=== PATIENT | female | born 1960 | race Caucasian/White ===

== ENCOUNTER 2025-01-22 13:01 | Outpatient (AMB) | payer BC, SELFPAY ==
--- NOTE | 2025-01-22 13:05 | MHC.PC.OV ---
Vital Signs 01/22/25 13:15 Height 5 ft 4.02 in Weight 149 lb 6 oz BMI 25.6 BP 110/74 Blood Pressure Location Rt brachial Position Sitting Respiration 12 Pulse 87 Pulse Source Pulse Oximeter Temp 98.1 F Temp Source Oral Pulse Oximetry (%) 97 Oxygen Delivery Method Room Air Intake Visit Reasons: New Patient requesting PE Intake Note: New patient visit Traffic Court Magistrate Required: No Allergies Penicillins Allergy (Unknown, Verified 01/22/25 13:10) Rash Medication List - Last Reconciled 01/22/25 by Deanna Lynch PA-C bupropion HCl XL 300 mg PO DAILY cholecalciferol (vitamin D3) 25 mcg PO DAILY cyanocobalamin (vitamin B-12) 1,000 mcg PO DAILY pantoprazole 20 mg PO BID potassium chloride ER 10 mEq PO DAILY triamterene-hydrochlorothiazid 75-50 mg 1 tab PO DAILY Tobacco use date assessed: 01/22/25 Fall risk assessment: 1 Fall in past year Last assessed Fall Risk: 01/22/25 Dental Screening Dental Screen Date: 01/22/25 Did you have a dental visit in the last 12 months?: Yes Did you have a dental problem in the last 6 months where you did not have access to dental care?: No Was dental information given to patient?: Patient has dentist HPI New Patient requesting PE HPI Details Pt is a 64 y/o female with a hx of anxiety, depression, menieres disease presenting today to [facility]. She is transferring from [place]. CV: She is on triamterene-hctz 75-50 mg daily but states that this is purely for Meniere's disease. BP is WNL today. HEENT: She does get some hoarseness of her voice on and off with a feeling of having to clear it. She denies pnd, difficulty swallowing. She has an ENT appointment coming up for the Meniere's disease but would like to be seen for the intermittent hoarseness of her voice and feeling like she has to constantly clear her throat. She says it just feels like there is something in it. There is no difficulty swallowing or swelling in her neck. No weight loss. She is a [employer]. She states that she was seen by an online group who recommended she tries a PPI. The PPI has been somewhat helpful. GI: She has had a clearing in her throat and slight cough for about 7 years. Recently tried a PPI for the last couple of months and does feel like this is improving it but it has not fully resolved. She does have a family history of esophageal cancer. No difficulty swallowing or weight loss. MSK: bilateral wrist pain x 1 year. Had previous cts in 2006. She says anytime she puts pressure on her hands and wrists she feels pain and weakness in the wrist. It feels different than carpal tunnel. No numbness, tingling or weakness. Has been going on for quite some time without any trauma. She used to do yoga all the time and now feels like she cannot. Psych: well controlled with wellbutrin 300 mg. States that she has been on this for years and in the past tried to come off of it but was unable to. No SI/HI. Colonoscopy: Overdue, did have a Cologuard a few years ago. 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 [facility] Surgical History (Updated 01/22/25 @ 13:48 by Deanna Lynch PA-C) History of carpal tunnel release of both wrists Family History (Updated 01/22/25 @ 13:14 by Padmini Curry CMA) Father Depression Alcohol abuse Mother Alcohol abuse Other FH: mental illness Substance use Social History Housing: House Patient Tobacco Use Status: Never used Tobacco (only smoked 1-2 times total in lifetime) e-Cigarette/Vaping Use: Never Used Second Hand Smoke Exposure: No service: No 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al status: retired Cognitive needs: No Hearing needs: Yes (hearing problem in right ear) Vision needs: Yes (glasses) Questionnaire PHQ-9 Over the last 2 weeks, how often have you been bothered by any of the following problems? 1. Little interest or pleasure in doing things: not at all 2. Feeling down, depressed, or hopeless: not at all 3. Trouble falling or staying asleep, or sleeping too much: not at all 4. Feeling tired or having little energy: not at all 5. Poor appetite or overeating: not at all 6. Feeling bad about yourself - or that you are a failure or have let yourself or your family down: not at all 7. Trouble concentrating on things, such as reading the newspaper or watching television: not at all 8. Moving or speaking so slowly that other people could have noticed. Or the opposite - being so fidgety or restless that you have been moving around a lot more than usual: not at all 9. Thoughts that you would be better off or of hurting yourself in some way: not at all Total score: 0 Depression Screening Interpretation: Negative Depression Screening Done: Yes 26782 - PHQ-9 Billing: Yes Source: Developed by Drs. Sohan Oliva, Erika Alas, Dino Hutchison and colleagues, with an educational faviola from [employer]. Thrive Questionnaire I am a: Patient What is your living situation today?: I have a steady place to live Within the past 12 months, did the food you bought not last and you didn't have the money to get more?: Never true Within the past 12 months, did you worry whether your food would run out before you got money to buy more?: Never true Do you have trouble paying for medicines?: No Do you have trouble getting transportation to medical appointments?: No Do you have trouble paying your heating and electricity bill?: No Do you have trouble taking care of your child, family member or friend?: No Do you have trouble with day-to-day activities such as bathing, preparing meals, shopping, managing finances, etc.?: No Are you currently unemployed and looking for a job?: No Are you interested in more education?: No Please select the resources that you would like help with: None Currently or been in a relationship where the following occur: No concerns reported THRIVE Score: 0 AUDIT C Alcohol Use Questionnaire (AUDIT-C) 1. How often do you have a drink containing alcohol?: 2-3 times a week 2. How many drinks containing alcohol do you have on a typical day when you are drinking?: 1 or 2 3. How often do you have six or more drinks on one occasion?: Never Total Score: 3 JOSEPH-7 AMB Questionnaire JOSEPH-7 Feeling nervous, anxious, or on edge: 0 = Not at all Not being able to stop or control worryin = Not at all Worrying too much about different things: 0 = Not at all Trouble relaxin = Not at all Being so restless that it is hard to sit still: 0 = Not at all Becoming easily annoyed or irritable: 0 = Not at all Feeling afraid as if something awful might happen: 0 = Not at all Total JOSEPH-7 score (0-4 normal; 5-9 mild; 10-14 moderate; 15-21 severe): 0 Source: Developed by Drs. Sohan Oliva, Erika Alas, Dino Hutchison and colleagues, with an educational faviola from [employer]. JOSEPH-7 Assessment Billing JOSEPH-7 Assessment Tool: JOSEPH-7 Assessment 97977 Physical exam (Primary Care) Vital Signs: Last Vital Signs Temp 98.1 F 01/22/25 13:15 Pulse 87 01/22/25 13:15 Resp 12 01/22/25 13:15 BP 110/74 01/22/25 13:15 Pulse Ox 97 01/22/25 13:15 Oxygen Delivery Method Room Air 01/22/25 13:15 BMI result Body Mass Index 25.6 Tobacco/Smoking Status: Tobacco use Status Tobacco use date assessed 01/22/25 01/22/25 13:18 Patient Tobacco Use Status Never used Tobacco (only 01/22/25 13:18 smoked 1-2 times total in lifetime) e-Cigarette/Vaping Use Never Used 01/22/25 13:18 PHQ-9: PHQ-9 Score PHQ-9: Total score 0 01/22/25 13:35 Depression Screening Interpretation: Negative Currently or been in a relationship where the following occur: No concerns reported Const Orientation/consciousness: patient oriented x3 HENMT Ears: hearing grossly normal bilaterally Neck Thyroid: Thyroid normal Lymphatic: no lymphadenopathy noted Resp Auscultation: clear to auscultation bilaterally Cardio Rate: regular rate Rhythm: regular rhythm Heart sounds: S1 normal heart sound present and S2 normal heart sound present GI Inspection: Yes normal to inspection Palpation (GI): Soft to palpation and Other GI palpation findings present (nontender, no cva tenderness) Auscultation: normoactive bowel sounds Rectal Exam - Female: deferred Skin General skin exam: no rashes or lesions noted Neuro General: patient oriented x3, gait normal and no focal motor deficits Coding Level of Care Code New Pt Level 4 (73668) Diagnoses Globus sensation R09.A2 GERD with esophagitis K21.00 Bilateral wrist pain M25.531; M25.532 Meniere disease H81.09 Hoarseness R49.0 Additional Codes PHQ-9 - 90124 - PHQ-9 Billing: Yes ([id number]) JOSEPH-7 Assessment Billing - JOSEPH-7 Assessment Tool: JOSEPH-7 Assessment 06392 ([id number]) Assessment & Plan Assessment & Plan (1) Globus sensation: Code(s): R09.A2 - Foreign body sensation, throat Category: Medical Plan: Ultrasound ordered. Referral to ENT. (2) GERD with esophagitis: Code(s): K21.00 - Gastro-esophageal reflux disease with esophagitis, without bleeding Category: Medical Plan: She is going to try to transition from PPI to H2 glenny. She will let me know how she does. I have referred her to GI (3) Bilateral wrist pain: Code(s): M25.531 - Pain in right wrist; M25.532 - Pain in left wrist Category: Medical Plan: X-rays ordered. Referral to ortho (4) Meniere disease: Code(s): H81.09 - Meniere's disease, unspecified ear Category: Medical Plan: Referral placed to ENT. Currently doing well with the triamterene/hydrochlorothiazide. When it flares up uses meclizine and clonazepam. (5) Hoarseness: Code(s): R49.0 - Dysphonia Category: Medical Plan: Not currently symptomatic but referral to ENT placed. Orders: Orders US soft tiss head and/or neck Today R09.A2 - Foreign body sensation, throat Comprehensive [place]. Panel Fast Today H81.09 - Meniere's disease, unspecified ear, K21.00 - Gastro-esophageal reflux disease with esophagitis, without bleeding, M25.531 - Pain in right wrist, M25.532 - Pain in left wrist, R09.A2 - Foreign body sensation, throat, R49.0 - Dysphonia Lipid Panel Today H81.09 - Meniere's disease, unspecified ear, K21.00 - Gastro-esophageal reflux disease with esophagitis, without bleeding, M25.531 - Pain in right wrist, M25.532 - Pain in left wrist, R09.A2 - Foreign body sensation, throat, R49.0 - Dysphonia XR wrist LT min 3V Today M25.531 - Pain in right wrist, M25.532 - Pain in left wrist, Z98.890 - Other specified postprocedural states MM screening mammo BI Today Z12.31 - Encounter for screening mammogram for malignant neoplasm of breast XR DEXA axial skeleton Today Z78.0 - Asymptomatic menopausal state Complete Blood Count Auto Diff Today H81.09 - Meniere's disease, unspecified ear, K21.00 - Gastro-esophageal reflux disease with esophagitis, without bleeding, M25.531 - Pain in right wrist, M25.532 - Pain in left wrist, R09.A2 - Foreign body sensation, throat, R49.0 - Dysphonia TSH reflex Free T4 Today H81.09 - Meniere's disease, unspecified ear, K21.00 - Gastro-esophageal reflux disease with esophagitis, without bleeding, M25.531 - Pain in right wrist, M25.532 - Pain in left wrist, R09.A2 - Foreign body sensation, throat, R49.0 - Dysphonia UA CC w/rflx Micro + Cult Today H81.09 - Meniere's disease, unspecified ear, K21.00 - Gastro-esophageal reflux disease with esophagitis, without bleeding, M25.531 - Pain in right wrist, M25.532 - Pain in left wrist, R09.A2 - Foreign body sensation, throat, R49.0 - Dysphonia, Z13.220 - Encounter for screening for lipoid disorders Referrals Gastroenterology Referral K21.00 - Gastro-esophageal reflux disease with esophagitis, without bleeding, Z12.11 - Encounter for screening for malignant neoplasm of colon Orthopedics Referral M25.531 - Pain in right wrist, M25.532 - Pain in left wrist, Z98.890 - Other specified postprocedural states FACULTY MEMBER Referral Z01.419 - Encounter for gynecological examination (general) (routine) without abnormal findings Ear/Nose/Throat Referral H81.09 - Meniere's disease, unspecified ear, R09.A2 - Foreign body sensation, throat, R49.0 - Dysphonia
[2025-01-22 13:15] VITALS: BP 110/74; PULSE 87; RESP 12; TEMP 36.7; O2SAT 97; BMI 25.6
--- OUTSIDE RECORDS SUMMARY | 2025-01-22 15:08 | XMS_ITS | Clinical Summary ---
Author Organization [facility] Address [address] [place] [address] Phone Care Team Providers Care Rn Hemo Dialysis Name Role Phone Unavailable Primary Care Provider Unavailabl e Allergies Active Allergy Reactions Criticality Noted Date Comments Penicillins Hives 07/09/2024 Medications buPROPion XL (WELLBUTRIN XL) 300 mg 24 hr tablet Take 1 tablet (300 mg total) by mouth 1 (one) time each day. Do not crush, chew, or split. Active meclizine (ANTIVERT) 25 mg tablet Take 1 tablet (25 mg total) by mouth if needed for dizziness. Active triamterene-hydr oCHLOROthiazide (MAXZIDE) 75-50 mg per tablet Take 1 tablet by mouth 1 (one) time each day. Active cyanocobalamin (VITAMIN B-12) 50 mcg tablet Take 1 tablet (50 mcg total) by mouth 1 (one) time each day. Active cholecalciferol (VITAMIN D-3) 10 mcg (400 unit) tablet Take 1 tablet (400 Units total) by mouth 1 (one) time each day. Active Active Problems Problem Noted Date Diagnosed Date Palpitations 07/09/2024 Assessment & Plan (07/09/2024 3:21 PM EST): No further palpitations since last 6 months. Probably associated with anxiety or stress which she was going through at that time. Since she is asymptomatic at this time, no further test is needed. I have reviewed her exercise stress test EKG strips. I think she has upsloping ST depression which is regarded as within normal limit rather than ischemic changes. I have reviewed the echocardiogram which is also normal. Orders: ECG 12 lead Medical History Medical History Date Comments Hearing loss Meniere disease Scoliosis Elevated lipoprotein(a) Anxiety and depression Social History Tobacco Use Types Packs/Day Years Used Date Smoking Tobacco: Never Smokeless Tobacco: Never Tobacco Cessation:Counseling Given: Not Answered Alcohol Use Standard Drinks/Week Comments Yes 0 (1 standard drink = 0.6 oz pur e alcohol) occ Comments Unknown Sex and Gender Information Value Date Recorded Sex Assigned at Not on file Legal Sex Female 11:42 AM EDT Gender Identity Not on file Sexual Orientation Not on file Obstetrics History Last Filed Vital Signs Vital Sign Reading Time Taken Comments Blood Pressure 116/80 07/09/2024 1:57 PM EST Pulse 74 07/09/2024 1:57 PM EST Temperature - - Respiratory Rate - - Oxygen Saturation 97% 07/09/2024 1:57 PM EST Inhaled Oxygen Concentration - - Weight 75.8 kg (167 lb) 07/09/2024 1:57 PM EST Height 162.6 cm (5' 4 ) 07/09/2024 1:57 PM EST Body Mass Index 28.67 07/09/2024 1:57 PM EST Plan of Treatment Health Maintenance Due Date Last Done Comments Breast Cancer Screening 1960 DTaP,Tdap,and Td Vaccines (1 - Tdap) 11/28/1979 Cervical Cancer Screening: P ap Smear 1981 Pneumococcal Vaccine: 50+ Years (1 of 1 - PCV) 2010 Zoster Vaccines (1 of 2) 2010 COVID-19 Vaccine ( - 2023-2 5 season) 2024 Depression Screening 05/30/2024 HIV Screening 05/30/2024 Hepatitis C Screening 05/30/2024 Social Influencers of Health Screening 05/30/2024 Colorectal Cancer Screening: FIT-DNA (Cologuard) 12/10/2024 12/10/2021, 12/10/2021 Influenza Vaccine (Season Ended) 2025 RSV Immunization Adult Patients (1 - 1-dose 75+ series) 11/28/2035 HIB Vaccines Aged Out No longer eligi ble based on patient's age to complete this topic HPV Vaccines Aged Out No longer eligi ble based on patient's age to complete this topic Hepatitis A Vaccines Aged Out No long er eligible based on patient's age to complete this topic Hepatitis B Vaccines Aged Out No long er eligible based on patient's age to complete this topic IPV Vaccines Aged Out No longer eligi ble based on patient's age to complete this topic MMR Vaccines Aged Out No longer eligi ble based on patient's age to complete this topic Meningococcal ACWY Vaccine Aged Out N o longer eligible based on patient's age to complete this topic Meningococcal B Vaccine Aged Out No l onger eligible based on patient's age to complete this topic Pneumococcal Vaccine: Pediatrics (0 to 5 Years) and At-Risk Patients (6 to 64 Years) Aged Out No longer eligible b ased on patient's age to complete this topic RSV Immunization Patients Under 20 months Aged Out No longer eligible b ased on patient's age to complete this topic Varicella Vaccines Aged Out No longer eligible based on patient's age to complete this topic Insurance
== END 2025-01-22 14:05 | disposition home or self-care (01) ==
LOC: HO.HMCFM 13:02
PROVIDERS: PCP Physician Assistant; Visit Provider Physician Assistant
DX: R09.A2 Foreign body sensation, throat (principal); K21.00 Gastro-esophageal reflux disease with esophagitis, without bleeding; M25.531 Pain in right wrist; M25.532 Pain in left wrist; H81.09 Meniere's disease, unspecified ear; R49.0 Dysphonia

== ENCOUNTER 2025-01-22 13:01 | Outpatient (REF) | payer BC, SELFPAY ==
--- NOTE | ~2025-01-22 | XR_ITS ---
Exam: 4 view bilateral wrists TECHNIQUE: PA, oblique, lateral, and brachial spot view of upper extremity joints, bilateral wrist INDICATION: Bilateral wrist pain No prior FINDINGS: RIGHT WRIST: Nonspecific punctate density is present distal to the ulnar styloid, likely chronic. There is neutral ulnar variance. There is no joint diastases or offset. On the oblique view, there is a oblique density through the waist of the scaphoid probably related to trabecular pattern. LEFT WRIST: There is no joint diastases. There is no abnormal also. Joint spaces are preserved. No degenerative changes are identified. No fracture lines are visible. XR/XR Wrist Juliano min 3V Impression: On the oblique view of the right wrist, there is vague oblique lucency probably related to trabecular pattern. If there is snuffbox tenderness, repeat wrist x-ray in 7-10 days. Punctate density distal to the right ulnar styloid is probably chronic. Correlate for signs symptoms of acute avulsion. Unremarkable left wrist. Electronically signed by: Nolan Silva MD 01/22/2025 03:24 PM EDT
== END 2025-01-22 13:02 | disposition home or self-care (01) ==
LOC: HO.XRAY 13:01
PROVIDERS: PCP Physician Assistant; Visit Provider Physician Assistant
DX: Z76.89 Persons encountering health services in other specified circumstances (principal); R09.A2 Foreign body sensation, throat; K21.00 Gastro-esophageal reflux disease with esophagitis, without bleeding; M25.531 Pain in right wrist; M25.532 Pain in left wrist; H81.09 Meniere's disease, unspecified ear; R49.0 Dysphonia
CPT/HCPCS: 73110; 96127

== ENCOUNTER → 2025-01-22 14:44 | Outpatient (BNV) | payer BC, SELFPAY | PROVIDERS: PCP Physician Assistant; Visit Provider Radiology Diagnostic Radiology | DX: M25.531 Pain in right wrist (principal); M25.532 Pain in left wrist | CPT/HCPCS: 73110 ==

== ENCOUNTER 2025-01-22 16:22 | Outpatient (REF) | payer BC, SELFPAY ==
[2025-01-22 17:56] LABS: Appearance Urine Clear; Color Urine Yellow; Glucose Urine UA Negative (Negative); Leukocyte Esterase Urine Trace (Negative); Nitrite Urine Negative (Negative); PH 8.5 (5.0-9.0); Specific Gravity - Urine 1.015 (1.005-1.025); UMIC TRIGGER UACC YES; Urine Blood Negative (Negative); Urine Ketones Negative (Negative); Urine Protein Negative (Neg-Trace)
[2025-01-22 17:59] LABS: Bacteria Urine None Seen (None Seen); Hyaline Casts Urine 0-2 /LPF (0-2); RBC Urine 0-2 /HPF (0-2); Squamous Epithelial Cell Urine 0-2 /HPF (0-2); WBC Urine 0-5 /HPF (0-5)
== END 2025-01-22 16:23 | disposition home or self-care (01) ==
LOC: HO.LAB 16:22
PROVIDERS: Visit Provider Physician Assistant
DX: R30.0 Dysuria (principal)
CPT/HCPCS: 81001

== ENCOUNTER 2025-01-26 08:13 | Outpatient (REF) | payer BC, SELFPAY ==
--- OUTSIDE RECORDS SUMMARY | 2025-01-26 08:20 | XMS_ITS | Clinical Summary ---
Author Organization [facility] Address [address] [place] [address] Phone Care Team Providers Care Kitchen Assistant Name Role Phone Unavailable Primary Care Provider [...]
[2025-01-26 08:31] LABS: MANUAL DIFF FLAG NO
[2025-01-26 08:43] LABS: Basophils Percent Auto 0.6 % (0-2); Eosinophils Absolute Auto 0.1 X10*3/uL (0.0-0.4); Eosinophils Percent Auto 1.3 % (0-4); Hematocrit 43.2 % (37.0-47.0); Imm Gran Abs Auto 0.01 X10*3/uL (0.00-0.03); Imm Gran Pct Auto 0.2 % (0.0-0.4); Lymphocytes Absolute Auto 1.9 X10*3/uL (1.2-4.9); Lymphocytes Percent Auto 35.5 % (20-40); Mean Corpuscular HGB Conc 32.4 g/dl (31.0-35.0); Mean Corpuscular Hemoglobin 28.7 pg (27.0-33.0); Mean Corpuscular Volume 88.5 fL (80.0-98.0); Mean Platelet Volume 9.5 fL (9.4-12.3); Monocytes Absolute Auto 0.4 X10*3/uL (0.1-1.2); Neutrophils Absolute Auto 2.9 x10*3/uL (2.0-8.3); Neutrophils Percent Auto 54.4 % (45-73); Platelet Count 301 X10*3/uL (160-400); Red Blood Count 4.88 X10*6/uL (4.20-5.50); Red Cell Distribution Width 13.1 % (11.0-16.0); White Blood Count 5.3 X10*3/uL (4.8-10.8)
[2025-01-26 09:11] LABS: Alanine Aminotransferase 22 U/L (0-31); Albumin Level 4.3 g/dL (3.5-5.0); Alkaline Phosphatase 57 U/L (39-117); Anion Gap 10 (12-20); Aspartate Amino Transferase 29 U/L (5-31); Bilirubin Total 0.6 mg/dL (0.0-1.0); Blood Urea Nitrogen 16 mg/dL (9-16); Calcium 9.2 mg/dL (8.4-10.2); Carbon Dioxide 30 mmol/L (22-29); Chloride 104 mmol/L (96-108); Cholesterol 218 mg/dL (<200); Estimated Glomerular Filt Rate 60; Glucose Fasting 86 mg/dL (60-99); HDL Cholesterol 71 mg/dL (>40); LDL Cholesterol Calculated 137 mg/dL (<100); Potassium 3.7 mmol/L (3.3-5.1); Sodium 140 mmol/L (135-145); Total Protein 6.7 g/dL (6.5-8.0); Triglycerides 51 mg/dL (<150)
[2025-01-26 09:27] LABS: TSH reflex Free T4 3.28 uIU/mL (0.32-4.0)
== END 2025-01-26 08:14 | disposition home or self-care (01) ==
LOC: HO.LAB 08:13
PROVIDERS: PCP Physician Assistant; Visit Provider Physician Assistant
DX: Z13.6 Encounter for screening for cardiovascular disorders (principal); R49.0 Dysphonia; H81.09 Meniere's disease, unspecified ear; M25.532 Pain in left wrist; M25.531 Pain in right wrist; R09.A2 Foreign body sensation, throat; K21.00 Gastro-esophageal reflux disease with esophagitis, without bleeding
CPT/HCPCS: 36415; 80053; 80061; 84443; 85025

== ENCOUNTER 2025-03-12 12:52 | Outpatient (REF) | payer BC, SELFPAY ==
--- OUTSIDE RECORDS SUMMARY | 2020-10-15 06:53 | XMS_ITS | Continuity of Care Document ---
[facility] Organization [facility] Address [address] [place] [phone] Phone Care Team Providers Care Fur Blower Operator Name Role Phone Nurse RN, Visit Unavailable Unavailable Allergies, Adverse Reactions, Alerts Substance Reaction Status Criticality PENICILLIN HivesHives Active No Information Procedures Procedure Date Imm Admin Moderna COVID Dose 2 21 SARS-COV-2 2 Dose Vaccine IM Imm Admin Moderna COVID Dose 1 21 SARS-COV-2 2 Dose Vaccine IM Advance Directives Directive Yes / No Effective Date File Name No Information Encounters Encounter Description Practice Location Reason(s) For Visit Diagnoses Date Provider Providers [facility]ied on [facility], [address] [place] [address], [id number], tel:[phone] [facility] 2 covid vaccine (chief complaint)c ovid vaccine (chief complaint) No Information Nurse Visit. . Referring Provider: Sharif Perez, [address] [place] [address], [id number]. tel:[phone] [facility], [address] [place] [address], [id number], tel:[phone] [facility] 2 covid vaccine (chief complaint) No Information Nurse Visit. . Referring Provider: Sharif Perez, [address] [place] [address] [id number] [place], [address]. tel:[phone] Family History Family Member Type Diagnosis Age At Onset No Information Immunizations Vaccine Date Status Comments SARS-COV-2 (COVID-19) vaccin e, mRNA, spike protein, LNP, preservative free, 100 mcg/0.5mL dose (Moderna) administered Note: Administe red by Minerva Mead ; Source: New Immunization Record SARS-COV-2 (COVID-19) vaccin e, mRNA, spike protein, LNP, preservative free, 100 mcg/0.5mL dose (Moderna) administered Note: Administe red by Diana Amaya RN ; Source: New Immunization Record Payers Payer name Insurance type Covered alliance party ID Authoriza tion(s) [employer] [id number] [employer] [id number] [employer] CI [id number] Social History Type Description Quantity Date Captured Comments Alcohol Use Details Unknown Caffeine Use Details Unknown Tobacco Use Status No Information Smoking Status No Information Sex Female Chief Complaint And Reason For Visit From encounter dated '10/15/2020 10:53'. covid vaccine (chief complaint) covid vaccine (chief complaint) Reason For Referral Reason For Referral No Information Plan Of Treatment Date Type Action Status Goal Depression screening. Due on due Goal Sigmoidoscopy. Due on due Goal FOBT. Due on due Goal Colonoscopy. Due on 021 due Goal Td vaccine. Due on 21 due Goal PAP. Due on due Goal Hemoglobin A1c. Due on due Goal Pap/HPV testing. Due on due Goal PPD (TST). Due on due Goal Mammogram. Due on due Goal Tdap. Due on due Goal Influenza vaccine. Due on due Goal Colonoscopy. Due on due Goal FOBT. Due on due Goal Sigmoidoscopy. Due on due Goal Td vaccine. Due on due Goal Lipid panel. Due on due Goal PAP. Due on due Goal Hemoglobin A1c. Due on due Goal Pap/HPV testing. Due on due Goal PPD (TST). Due on due Goal Mammogram. Due on due Goal Tdap. Due on due Goal Influenza vaccine. Due on due Goal Depression screening. Due on due History Of Present Illness Encounter Date Complaint History Of Prese nt Illness covid vaccine covid vaccine covid vaccine Functional Status Date Functional Assessmen t No Information Instructions Date Instruction Additional Infor mation No Information Assessments Type Assessment Date No Information Patient Care Teams Name Effective Dates (start - stop) Status Members No Information
--- NOTE | ~2025-03-12 | US_ITS ---
EXAMINATION: US NECK AND THYROID CLINICAL INFORMATION: Foreign body sensation in throat.. COMPARISON: None available. TECHNIQUE: Linear transducer mathias-scale and color Doppler examination with attention to the region of the thyroid. FINDINGS: SIZE: Measurements of the thyroid lobes and nodules are given in sagittal, anteroposterior and transverse dimensions respectively. Right Thyroid Lobe: 3.2 x 0.9 x 0.9 cm, volume 1.4 mL. Left Thyroid Lobe: 2.8 x 0.6 x 0.9 cm, volume 0.8 mL. Isthmus: 0.2 cm in maximum AP dimension. PARENCHYMA: The gland echotexture is normal. Thyroid vascularity is normal. RIGHT THYROID LOBE: No nodules. ISTHMUS: No nodules. LEFT THYROID LOBE: There is a 0.5 x 0.2 x 0.2 TR category 3 nodule in the left midpole. OTHER: No lymphadenopathy is seen in the tissue surrounding the thyroid gland. No mass or abnormal fluid collection. US/US soft tiss head and/or neck IMPRESSION: 1. There is a 0.5 cm TR category 3 nodule in the left midpole. No follow-up recommended. 2. The thyroid gland is otherwise normal in sonographic appearance. 3. There is no abnormal lymphadenopathy, mass, or abnormal fluid collection in the imaged neck. If there is further concern for patient's symptomatology, CT of the neck with contrast recommended. Electronically signed by: Rojelio Montiel MD 03/12/2025 02:56 PM EDT
--- OUTSIDE RECORDS SUMMARY | 2025-03-12 13:04 | XMS_ITS | Clinical Summary ---
Author Organization [facility] [employer] Address [address] [place] [address] Phone Care Team Providers Care Psychologist Clinical Name Role Phone Unavailable Primary Care Provider [...] Vaccine ( - 2023-2 5 season) 2024 HIV Screening 05/30/2024 Hepatitis C Screening 05/30/2024 Social Influencers of Health Screening 05/30/2024 Depression Screening 08/20/2024 Colorectal Cancer Screening: FIT-DNA (Cologuard) 12/10/2024 12/10/2021, 12/10/2021 Influenza Vaccine (#1) 2025 RSV Immunization Adult Patients (1 - [...] patient's age to complete this topic Insurance [facility] [[email or web address]]
== END 2025-03-12 12:53 | disposition home or self-care (01) ==
LOC: HO.US 12:52
PROVIDERS: PCP Physician Assistant; Visit Provider Physician Assistant
DX: R09.A2 Foreign body sensation, throat (principal)
CPT/HCPCS: 76536

== ENCOUNTER → 2025-03-12 12:53 | Outpatient (BNV) | payer BC, SELFPAY | PROVIDERS: PCP Physician Assistant; Visit Provider Radiology Diagnostic Radiology | DX: E04.1 Nontoxic single thyroid nodule (principal) | CPT/HCPCS: 76536 ==

== ENCOUNTER 2025-03-24 12:41 | Outpatient (AMB) | payer BC, SELFPAY ==
[2025-03-24 13:02] VITALS: BMI 24.9
--- NOTE | 2025-03-24 13:02 | MHC.OFFVIS ---
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 States her left is worse than her her right. States she has a burning sensation on her palm when applying pressure on hands. Patient reports she is having weakness in wrist when pressure is applied and is worsen with over use of hands. States this is affecting her while trying to do yoga. She has a history of bilateral carpal tunnel release in 2006 in [place]. Denies numbness, tingling, locking of any finger or trauma. Patient has tried doing home exercise with no improvement. 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 She complains of pain in the volar aspect of both wrists primarily when she tries to bring her wrist into full extension, as when doing downward dog in yoga or push-up position. Otherwise she says she does not really have pain in her wrists. She denies any recent injuries. She says that she is status post bilateral carpal tunnel releases in about 2006 with good results. She denies any problems with numbness and tingling at this time. [facility] Surgical History History of carpal tunnel release of both wrists Family History (Updated 01/23/25 @ 13:37 by Padmini Curry CMA) Father Depression Alcohol abuse Mother Alcohol abuse Asthma HTN (hypertension) Thyroid disorder Maternal Grandmother Cardiovascular disease Maternal Grandfather Esophageal cancer Other FH: mental illness Substance use Social History (Updated 03/24/25 @ 13:11 by CONTRERAS Delarosa) Housing: House Patient Tobacco Use Status: Never used Tobacco e-Cigarette/Vaping Use: Never Used Second Hand Smoke Exposure: No service: No 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al status: retired 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 Cognitive needs: No Hearing needs: Yes (hearing problem in right ear) Vision needs: Yes (glasses) Physical Exam Vital Signs: BMI result Body Mass Index 24.9 Const General: cooperative, healthy appearing and no acute distress Orientation/consciousness: oriented to person and oriented to place HEENT Head: Yes normocephalic and Yes atraumatic Eyes EOM: EOMs intact bilaterally Resp Effort & Inspection: normal respiratory effort and able to speak in complete sentences Cardio Jugular venous distension: no JVD Skin General skin exam: turgor normal Rashes: no rashes Neuro General: oriented to person and oriented to place Extrem Other: Evaluation of bilateral Upper Extremity: Neuro: Median, ulnar, radial nerves motor and sensory intact. No thenar or intrinsic wasting. Good APB muscle belly firing and finger cross Vascular: Cap refill brisk. ROM: Can bring fingers closed to a fist and back out to full extension. No locking or catching Smooth and painless wrist range of motion today. Full and symmetrical prono-supination Full and symmetrical wrist flexion Wrist extension is symmetrical but she can not quite bring her wrists to 90 degrees or push-up position bilaterally. Skin: No lacerations or abrasions. General: No eccymosis. No erythema or evidence of infection. Radiographs: Three views of both wrists from 01/22/2025 were reviewed by me today in clinic. They show no fractures or dislocations. I do not see any significant arthritic changes or other issues. Psych Appearance: grossly normal Affect: normal affect Attitude: cooperative Assessment & Plan Assessment & Plan (1) Bilateral wrist pain: Code(s): M25.531 - Pain in right wrist; M25.532 - Pain in left wrist Category: Medical Plan Assessment and plan: 1. Pain in both wrists on the volar aspect when they are brought into push-up position 2. Mild stiffness in both wrists were they are unable to come to full 90 degrees of extension or push-up position. Normal and symmetrical wrist flexion, and prono-supination bilaterally I educated her about these findings. Fortunately, I do not see any structural problems that might be causing this issue. I am referring her to OT hand therapy in hopes that they can work on helping her improve some wrist extension so that she can better participate in her yoga class. We will see her back in 2-3 months to see how she is doing. No new radiographs are needed unless she has a new injury. Orders: Orders OT Evaluation and Treatment Today M25.531 - Pain in right wrist, M25.532 - Pain in left wrist Coding Level of Care Code New Pt Level 3 (38107) Diagnoses Bilateral wrist pain M25.531; M25.532
--- OUTSIDE RECORDS SUMMARY | 2025-03-24 13:16 | XMS_ITS | Clinical Summary ---
Author Organization [facility] Address [address] [place] [address] Phone Care Team Providers Care Melt Helper Name Role Phone Unavailable Primary Care Provider [...] patient's age to complete this topic Insurance [facility]
== END 2025-03-24 13:37 | disposition home or self-care (01) ==
LOC: HO.HOS 12:42
PROVIDERS: PCP Physician Assistant; Visit Provider Orthopaedic Surgery
DX: M25.531 Pain in right wrist (principal); M25.532 Pain in left wrist
CPT/HCPCS: 99203

== ENCOUNTER 2025-03-25 12:36 | Outpatient (REF) | payer BC, SELFPAY ==
--- NOTE | ~2025-03-25 | MM_ITS ---
EXAMINATION: DXA BONE DENSITY AXIAL HISTORY: Z78.0 - Asymptomatic menopausal state TECHNIQUE: Zapnip Dual energy absorptiometry (DEXA) of the lumbar spine, total left hip, and femoral neck was performed. COMPARISON: There are no prior studies for comparison. FINDINGS: The bone mineral density of the lumbar spine is 0.980 g/cm2, corresponding to a T-score of -1.6, and a Z-score of 0.0. This is indicative of osteopenia. The bone mineral density of the left total hip is 0.859 g/cm2, corresponding to a T-score of -1.2, and a Z-score of 0.0. This is indicative of osteopenia. The bone mineral density of the left femoral neck is 0.784 g/cm2, corresponding to a T-score of -1.8, and a Z-score of -0.4. This is indicative of osteopenia. FRACTURE RISK: The FRAX index suggests a risk of major osteoporotic fracture of 9.9%, and of hip fracture 1.3%. MM/XR DEXA axial skeleton IMPRESSION: Based on bone mineral density, and according to World Health Organization (WHO) criteria, the diagnosis is consistent with osteopenia. Statistically, 68% of repeat scans fall within 1 SD (+/- 0.010 g/cm2 for AP spine L1-L4) and 1 SD (+/- 0.012 g/cm2 for femur total) FRAX is a trademark of the [employer] [place] for Metabolic Bone Disease, a World Health Organization (WHO) Collaborating Center. Electronically signed by: Sohan Gardner MD 03/25/2025 01:08 PM EDT
--- OUTSIDE RECORDS SUMMARY | 2025-03-25 13:09 | XMS_ITS | Clinical Summary ---
Author Organization [facility] Address [address] [place] [address] Phone Care Team Providers Care Staff Nurse Midwife Name Role Phone Unavailable Primary Care Provider [...]
--- OUTSIDE RECORDS SUMMARY | 2025-03-25 13:10 | XMS_ITS | Encounter Summary ---
Author Organization [facility] Address [address] [place] [id number] Phone Care Team Providers Care Electrical Systems Drafter Name Role Phone Josefina Carr MD Primary Care Provider [phone] Reason for Referral * Occupational Therapy (Routine) - New Request Specialty Diagnoses / Procedures Referred By Dat fermin Referred To Contact Occupational Therapy Diagnoses Encounter for rehabilitation Sofiya Pierce MD [address] [place] [address] Dr Cordero [address] [place] [address] Phone: tel: fax: [facility] [address] [place] [address] Phone: tel: Referral ID Status Reason Start Date Expiration Date V isits Requested Visits Authorized [id number] New Request 03/25/2025 03/25/2026 1 1 Encounter Details Date Type Department Care Team (Latest Contact Info) Description 03/25/2025 Transcribe Orders [facility] [address] [place] [id number] Sofiya Pierce MD [address] [place] [address] Dr Cordero [address] [place] [phone] Encounter for rehabilitation (Primary Dx) Social History Tobacco Use Types Packs/Day Years Used Date Smoking Tobacco: Never Assessed Education Answer Date Recorded Are you interested in more education? Not on yanet e 04/15/2024 Are you concerned about learning? Not on file 04/15/2024 No 04/15/2024 No 04/15/2024 Digital Access Answer Date Recorded No 04/15/2024 No 04/15/2024 Reliable internet access at home? Not on file 04/15/2024 Device with a working camera? Not on file Comments Unknown Sex and Gender Information Value Date Recorded Sex Assigned at Not on file Legal Sex Female 12:46 PM EDT Gender Identity Not on file Sexual Orientation Not on file documented as of this encounter Plan of Treatment Scheduled Referrals Name Type Priority Associated Diagnoses Orde r Schedule Ambulatory referral to [facility] Occupational Therapy Outpatient Referral Routine Encounter for rehabilitation Ordered: 03/25/2025 documented as of this encounter Visit Diagnoses Diagnosis Encounter for rehabilitation- Primary documented in this encounter Care Teams Electrical Systems Drafter Relationship Specialty Start Date End Date Josefina Carr MD [address] [address] PCP - General Internal Medicine 04/14/24 documented as of this encounter Additional Source Comments The information contained in this document represents components of the legal health record. It is not the complete legal health record.[facility]
== END 2025-03-25 12:37 | disposition home or self-care (01) ==
LOC: HO.MAMMO 12:36
PROVIDERS: PCP Physician Assistant; Visit Provider Physician Assistant
DX: Z12.31 Encounter for screening mammogram for malignant neoplasm of breast (principal); Z13.820 Encounter for screening for osteoporosis; Z78.0 Asymptomatic menopausal state
CPT/HCPCS: 77063; 77067; 77080

== ENCOUNTER → 2025-03-25 13:00 | Outpatient (BNV) | payer BC, SELFPAY | PROVIDERS: PCP Physician Assistant; Visit Provider Radiology Diagnostic Radiology | DX: E28.39 Other primary ovarian failure (principal) | CPT/HCPCS: 77080 ==

== ENCOUNTER 2025-05-27 12:39 | Outpatient (AMB) | payer BC, SELFPAY ==
--- NOTE | 2025-05-27 12:45 | MHC.OFFVIS ---
Vital Signs 05/27/25 12:46 Height 5 ft 4 in Weight 142 lb BMI 24.4 BP 120/56 L Blood Pressure Location Lt brachial Position Sitting Pulse 80 Pulse Oximetry (%) 98 Oxygen Delivery Method Room Air Intake Visit Reasons: Gastroesophageal reflux disease (GERD) Intake Note: Patient new consult for GERD. Patient cc: clear throat a lot, and constipation on and off. [employer] Manager Required: No Accompanied by: Self / Same As Patient Allergies Penicillins Allergy (Unknown, Verified 05/27/25 12:45) Rash Medication List - Last Reconciled 05/27/25 by Kalie Gloria CNP bupropion HCl XL 300 mg PO DAILY cholecalciferol (vitamin D3) 25 mcg PO DAILY cyanocobalamin (vitamin B-12) 1,000 mcg PO DAILY pantoprazole 20 mg PO BID HPI HPI Gastroesophageal reflux disease (GERD): Details: Patient is a 64-year-old female with PMH of meniere's disease, diet vitamin-D deficiency. Referred by PCP for further evaluation of GERD. Shares she relocated from [place] within the past year. Patient presents for evaluation of longstanding reflux symptoms, present for years, with primary manifestations of frequent throat clearing and concern about potential effects on vocal cords given enjoyment of singing. No significant heartburn or classic burning sensation described. Intermittent mild regurgitation, but denies dysphagia, odynophagia, or significant food impaction. Reports prior limited response to multiple therapies including short courses of antacids, H2 blockers (Pepcid), and a 30-day course of pantoprazole prescribed in January (taken twice daily as directed for a month). Symptoms have minimally improved, with lessened frequency since intermittent use of duqp-fje-blpxoqk agents, though adherence has been inconsistent. Recent weight reduction was intentional via intermittent fasting. Constipation well-managed with daily psyllium, no associated pain or rectal bleeding. No prior upper endoscopy. Last colonoscopy estimated at age 50 with subsequent negative Cologuard tests. Notable PMHx for Meniere?s disease and remote hypertension. Relevant medication includes bupropion. Family h/o esophageal ca in grandfather; no known FDR colorectal ca Patient denies: fever/chills, n/v, appetite changes, pyrosis, dysphasia, unintentional wt loss, ab pain or melena/hematochezia. Social hx: -Currently consuming 3?4 glasses wine nightly; history of periods of abstinence and increased consumption, intends to reduce/stop again -denies recreational drug use -non-smoker - family hx as below -denies personal hx of CA -denies significant cardiopulmonary history -tolerated anesthesia in the past without difficulty. PFSH Medical History (Updated 05/27/25 @ 14:50 by Kalie Gloria CNP) Colon cancer screening Acid reflux Surgical History (Updated 05/27/25 @ 12:52 by Alison Feliz) Hx of colonoscopy History of carpal tunnel release of both wrists Family History Father Depression Alcohol abuse Mother Alcohol abuse Asthma HTN (hypertension) Thyroid disorder Maternal Grandmother Cardiovascular disease Maternal Grandfather Esophageal cancer Other FH: mental illness Substance use Social History Housing: House Patient Tobacco Use Status: Never used Tobacco e-Cigarette/Vaping Use: Never Used Second Hand Smoke Exposure: No service: No 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al status: retired 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 Cognitive needs: No Hearing needs: Yes (hearing problem in right ear) Vision needs: Yes (glasses) Review of Systems Const Reports as per HPI ENT Reports as per HPI Card Reports as per HPI Resp Reports as per HPI GI Reports as per HPI Reports as per HPI Physical Exam Vital Signs: Last Vital Signs Pulse 80 05/27/25 12:46 BP 120/56 L 05/27/25 12:46 Pulse Ox 98 05/27/25 12:46 Oxygen Delivery Method Room Air 05/27/25 12:46 BMI result Body Mass Index 24.4 Const General: healthy appearing, no acute distress and well developed Nutritional Appearance: average body habitus Orientation/consciousness: patient oriented x3 HEENT Head: Yes normal to inspection, Yes normocephalic and Yes atraumatic Face and sinus: Yes normal facial exam Mouth: Normal oral and palatal mucosa present Throat: Yes posterior oropharynx normal Eyes General: appearance normal, both eyes and all related structures Neck Neck: Yes normal visual inspection Resp Effort & Inspection: normal respiratory effort, able to speak in complete sentences, no tracheal deviation and symmetric chest movement Cardio Jugular venous distension: no JVD GI Inspection: Yes normal to inspection and No distended Palpation (GI): Soft to palpation, not firm, nontender and No hepatosplenomegaly present Auscultation: normoactive bowel sounds Neuro General: patient oriented x3 Gait exam (Neuro): Normal gait present Psych Appearance: grossly normal Mental Status: mental status grossly normal Speech and movement: Normal speech and movement present Affect: normal affect Attitude: cooperative Thought process: Normal thought process present Thought content: Normal thought content present Insight: Good insight present (Psych) Judgement: Good judgement present (Psych) Assessment & Plan Assessment & Plan (1) Acid reflux: Code(s): K21.9 - Gastro-esophageal reflux disease without esophagitis Category: Medical Qualifiers: Esophagitis presence: esophagitis presence not specified Qualified Code(s): K21.9 - Gastro-esophageal reflux disease without esophagitis Plan: Years of symptoms (throat clearing > heartburn) with family history of upper GI malignancy, incomplete response to acid suppression. DDX: Non-acid reflux VS allergic or irritant-induced laryngitis VS Esophageal motility disorder (low suspicion given absence of dysphagia) VS Upper GI structural lesion (low suspicion, but EGD warranted by age/symptoms/FH) Additional Testing: EGD recommended (in conjunction with colonoscopy) to assess for erosive esophagitis, laryngeal findings, Byrne?s, or other pathology. Medication Management: Resume pantoprazole 20 mg Qam, take on empty stomach with 30 min delay before eating; avoid inconsistent use. Famotidine PRN optional as adjunct. Lifestyle Recommendations: Reinforce intermittent fasting if beneficial, reduce/abstain from alcohol (potential reflux trigger), avoid late evening meals, elevate HOB, avoid dietary triggers if identified. Follow-Up: Post-procedure, reassess after EGD/colonoscopy or sooner if symptom changes/complications. (2) Colon cancer screening: Code(s): Z12.11 - Encounter for screening for malignant neoplasm of colon Category: Medical Plan: Age >50, >10 yrs since last colonoscopy, negative interval Cologuard, no FDR CRC. Medications: -prescriptions for laxative tablets and MiraLax sent to pharmacy; instructions for Gatorade purchase and clear liquid diet given. Patient educated on scheduling process, procedure preparation, including avoiding certain foods and ensuring clear liquid intake Advised on necessity for ride post-procedure due to sedation. Plan Follow-up after endoscopy or sooner as needed Time: I spent a total of 30 minutes on the date of encounter which includes: Preparing to see the patient (reviewed previous documentation, test results and medical history) Performing a medically appropriate exam and/or evaluation Ordering medications, tests, and procedures Documenting clinical information in the health record Orders: Referrals GI Procedure Notification K21.9 - Gastro-esophageal reflux disease without esophagitis, Z12.11 - Encounter for screening for malignant neoplasm of colon Medications: New bisacodyl Take per colonoscopy instructions 5 mg PO ONCE 4 tabs 0RF polyethylene glycol 3350 (Miralax) per colonoscopy prep instructions 238 grams PO ONCE 238 grams 0RF Changed From pantoprazole 20 mg PO DAILY To pantoprazole Take one tablet daily on empty stomach. Wait 30 minutes before eating. 20 mg PO DAILY 90 tabs 0RF Coding Level of Care Code New Pt New Pt Level 3 (10062) Patient Type New Diagnoses Gastroesophageal reflux disease, unspecified whether esophagitis present K21.9 Esophagitis presence: esophagitis presence not specified Colon cancer screening Z12.11
[2025-05-27 12:46] VITALS: BP 120/56; PULSE 80; O2SAT 98; BMI 24.4
== END 2025-05-27 13:57 | disposition home or self-care (01) ==
LOC: HO.HGI 12:40
PROVIDERS: PCP Physician Assistant; Visit Provider Nurse Practitioner Family
DX: Z01.818 Encounter for other preprocedural examination (principal); Z12.11 Encounter for screening for malignant neoplasm of colon; K21.9 Gastro-esophageal reflux disease without esophagitis
CPT/HCPCS: S0285

== ENCOUNTER 2025-06-22 11:20 | Outpatient (REF) | payer BC, SELFPAY ==
--- OUTSIDE RECORDS SUMMARY | 2025-06-22 14:25 | XMS_ITS | Clinical Summary ---
Author Organization [facility] Address [address] [place] [address] Phone Care Team Providers Care It Technical Architect Name Role Phone Unavailable Primary Care Provider [...] 2010 Zoster Vaccines (1 of 2) 2010 HIV Screening 05/30/2024 Hepatitis C Screening 05/30/2024 Social Influencers of Health Screening 05/30/2024 Depression Screening 08/20/2024 Colorectal Cancer Screening: FIT-DNA (Cologuard) 12/10/2024 12/10/2021, 12/10/2021 COVID-19 Vaccine (1 - 2023-2 5 season) 2025 Influenza Vaccine (#1) 2025 RSV Immunization Adult [...] patient's age to complete this topic Insurance [employer]
--- OUTSIDE RECORDS SUMMARY | 2025-06-22 14:25 | XMS_ITS | Data Portability ---
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 The patient has been stable for the past two to three years without major attacks. Given her stability, I recommend discontinuing triamterene/hydro chlorothiazide and potassium supplementation. She should monitor her blood pressure at home or with her primary care provider to ensure hypertension does not develop after stopping these medications. The patient's hearing aid, approximately three years old, appears to be functioning well but may benefit from reprogramming to match her current level of hearing loss. I recommend scheduling an appointment with one of our audiologists to evaluate and adjust the hearing aid as needed. She should wear the hearing aid consistently over the next few weeks and document environments where it works well and where it does not, to assist the lozenge maker in optimizing its settings. The patient has small exostoses in both ear canals, which are benign and require no intervention. I educated her on their nature and reassured her that they are not a cause for concern. The patient is encouraged to upload or provide copies of her previous medical records, including imaging studies, via our patient portal or by dropping them off at the office. This will help complete her medical history and ensure thorough documentation. I discussed the importance of consistent hearing aid use for improved auditory function and cognitive health. Additionally, I addressed her concerns about singing and music, noting that adjustments to the hearing aid settings or ear mold design may help alleviate disorientation during these activities. This will be further evaluated during her audiology appointment. [email or web address] Not available 04/13/2025 11:22:17 Plan of Treatment Reminders Order Date Submit Date Provider Last Modified By Organization Details Last Modified Time Details Appointments None record ed. Lab None record ed. Referral None record ed. Procedures None record ed. Surgeries None record ed. Imaging None record ed. Medication Orders None record ed. Patient TargetsNo targets recorded. Patient Instructions Encounter Date Encounter Id Patient Instructions Last Modified By Organization Details Last Modified Time 04/13/2025 [id number] Discontinue triamterene/hydro chlorothiazide and potassium supplementation. Monitor blood pressure at home or with primary care provider. Schedule an appointment with an lozenge maker for hearing aid evaluation and adjustment. Wear hearing aid consistently over the next few weeks and document environments where it works well and where it does not. Upload or provide copies of previous medical records, including imaging studies, via the patient portal or by dropping them off at the office. [email or web address] Not available 04/13/2025 11:20:47 Please note: Parts of this encounter note have been generated by AI based on audio conversation. Patient consent was required prior to utilizing this technology. Content review was required prior to finalizing the note. [email or web address] Not available 04/13/2025 11:20:47 Reason for Referral None Reported. Results Created Date Observation Date Name Description Value Unit Range Abnormal Flag Note LastModifiedBy Organization Detail LastModifiedTime 04/14/20 audio gram No observ ation record ed. BARCODE Not Available 2024 08:31:45 Result Notes None recorded. Problems Name Problem SNOMED Code Status Onset Date Resolution Date Notes Provider Name and Address Organization Details Recorded Time Sensorineur al hearing loss of bilateral ears 056444474 Active 2024 LUIS ARMANDO GRAVES [address] [address], [facility] [place], [address], [facility] - [facility] 10:35:59 Bilateral exostosis of external ear canals [id number] 108 Active 2024 JANEL BABNI MD [address] [address], [facility] [place], [address], [place] - [facility] 11:09:25 Meniere's disease of left inner ear [id number] 107 Active 2024 JANEL BABIN MD 100 [facility] [address], [place], [address], [facility] [place] 11:22:24 Problem Notes None recorded. Procedures Surgical History Date Name Laterality Status Provider Name and Address Organization Details Recorded Time Comp Audio with Tymps & Reflexes - 07699 & 68424 completed LUIS ARMANDO GRAVES 100 [facility] 100, [place], [address], [facility] 04/13/2025 10:35:54 Imaging Results None recorded. Procedure Notes None recorded. Medical Equipment None Reported. Allergies No known drug allergies Medications Name Sig Start Date Stop Date Status Note LastModified by Organization Details LastModified Time potassium chloride ER 10 mEq capsule,exte nded release TAKE 1 CAPSULE BY MOUTH DAILY 04/13 completed Not Available Not Available Not Available clonazepam 0.5 mg tablet 0.5 mg as needed by oral route. 2006 active Not Available Not Available Not Avai lable pantoprazole 20 mg tablet,delay ed release TAKE 1 TABLET BY MOUTH TWICE A DAY 04/13 completed Not Available Not Available Not Available triamterene 75 mg-hydrochlo rothiazide 50 mg tablet TAKE 1 TABLET BY MOUTH EVERY DAY 04/13 completed Not Available Not Available Not Available Pepcid AC 10 mg tablet 10 mg every 12 hours by oral route. 2024 active Not Available Not Available Not Avai lable bupropion HCl XL 300 mg 24 hr tablet, extended release TAKE 1 TABLET BY MOUTH EVERY DAY active Not Available Not Available No t Available meclizine 2006 active Not Available Not Available Not Avai lable Vitamin D3 2009 active Not Available Not Available Not Avai lable Vitamin B12 2009 active Not Available Not Available Not Avai lable Vitals None Recorded Social History Question Answer Notes LastModified by Organizat ion Details LastModified Time Tobacco Smoking Status Never Smoker Aurelia perez [facility] 04/13/2025 10:05:32 How Many Years Have You Consumed Alcohol? 20 [email or web address] Information not available 04/13/2025 What Type Of Brick Tosser Do You Use? None [email or web address] Information not available 04/13/2025 How Many Alcoholic Drinks Do You Consume Per Day On Average? 3 [email or web address] Information not available 04/13/2025 Do You Have Any Pets? Yes [email or web address] Information not available 04/13/2025 Are You Passively Exposed To Smoke? No [email or web address] Information not available 04/13/2025 Are There Any Smokers In Your House? No [email or web address] Information not available 04/13/2025 Sex: Unknown Functional Status Question Answer Note LastModified by Organization Details LastModified Time How many times per week do you consume alcohol? 1-2 times per week [email or web address] Information not available 04/13/2025 Do you use any illicit or recreational drugs? No [email or web address] Information not available 04/13/2025 Do you or have you ever used any other forms of tobacco or nicotine? No [email or web address] Information not available 04/13/2025 What is your level of alcohol consumption? Occasional [email or web address] Information not available 04/13/2025 What type of noise exposure are you exposed to? noExposureToExcessiveNoise [email or web address] Infor mation not available 04/13/2025 Mental Status None recorded. Family History Nothing Reported. Medical History Condition Response Allergies/Hayfever N Heart Problems N Anxiety Y Tonsil Infections N Emphysema N Migraines N Thyroid Problems N Glaucoma N Depression Y COPD N Developmental Delay N Nasal or Sinus Problems N Anemia N Immune System Disorder N Anesthesia Complications N Heart Attack ([place]) N Other Skin Condition N Diabetes N Rhinitis N Bleeding Disorder N Food Allergy N Arthritis Y Hearing Loss Y Hyperlipidemia Y Cancer N Stroke N Dementia N Nasal polyps N Asthma N High Cholesterol N Sleep Disorder N GERD/Reflux Y Liver Disease N Headaches N Fibromyalgia N Hypertension N Speech Delay N Kidney Disease N Gynecological HistoryNo gynecological history recorded. Obstetrics History GPAL:G 0 P 0 0 0 0 Past Encounters Encounter ID Performer Location Encounter Start Date Encounter Closed Date Diagnosis/Indication Diagnosis SNOMED-CT Code Diagnosis ICD10 Code Diagnosis IMO Codes Diagnosis Note [id number] JANEL BABIN MD [facility] on [address] [place] [address] 04/13/2025 09:52:37 04/13/2025 12:01:50 Sensorineural hearing loss of bilateral ears 975666883 H90.3 [id number] Audiologic al evaluation results: 04/13/2025 Right ear: Normal through 4kHz sloping to a moderate sensorineu ral hearing loss with excellent word recognitio n. Left ear: Moderate sloping to severe sensorineu ral hearing loss with good word recognitio n. Tympanomet ry: Right Ear:Type A Left Ear:Type A Acoustic Reflex Testing: Signal to theRight Ear(uncros sed): Normal Signal to theLeft Ear(uncros sed):Viry l Bilateral exostosis of external ear canals 0638780051 166891 H61.813 [id number] Meniere's disease of left inner ear 6763450858 844799 H81.02 [id number] LUIS ARMANDO MCCABE [address] [address] 05/04/2025 13:02:50 05/04/2025 14:32:52 Sensorineural hearing loss of bilateral ears 424450276 H90.3 [id number] Health Concerns Section Related Observation LastModified by Organization Detai ls LastModified Time None Recorded Concern Status LastModified by Organization Details LastModified Time None Recorded Advance Directives Directive None Recorded Payers Insurance Date Sequence Insurance Name Policy Number Policy Hernandez Covered Member ID Hernandez Member ID Guarantor Name 05/04/2025 1 [facility]: [facility] ([facility] [id number] Shell Ashraf [id number] Shell Ashraf Notes Date Note Type Note Provider Name and Address Organization Details Recorded Time 04/13/2025 text/html Shell Ashraf is a 64-year-old female who presents for evaluation of left ear symptoms. She was diagnosed with atypical Meniere's disease in 09/2003, initially experiencing fluctuating hearing loss, a feeling of pressure, and tinnitus in the left ear, without vertigo. Vertigo symptoms began in 09/2006, and it took approximately two years to establish a treatment plan. Her treatment has included meclizine and Klonopin for episodes, with prednisone prescribed for frequent episodes. She has been on a diuretic, triamterene/hydroch lorothiazide, for approximately ten years, and potassium supplementation was added two years ago due to low potassium levels. She reports no major attacks in the past two to three years and states her hearing loss in the left ear has stabilized, with minimal fluctuation noted during recent hearing tests. She uses a hearing aid primarily in noisy environments, such as restaurants, but does not wear it consistently. She is vegetarian and believes her diet is healthy. She has a history of extensive evaluation for her condition, including consultations at [facility] and a specialist in [facility]. She expresses interest in discontinuing her diuretic and potassium supplementation, given her stable symptoms over the past few years. JANEL BABIN MD 100 [facility],[address], [address], [facility] 04/13/2025 11:22:44 05/04/2025 text/html Here today to establish care. She recently moved from [place].She feels she is doing well with the hearing aid but she is in choir and when she sings she has to take it out. Conneted to [facility] downloaded original settings and then saved in the system.I then conneted again and allowed Shraddha to recalaculate based off the latest test. I think did an insitu audiogram and recalculated to that setting. She feels she is hearing different then when she walked in, she believes that it is a better change. I also gave her a music program and informed her how to use it with the button. She is not connected to the phone. FU one month, sooner if the changes I made aren't working for her. LUIS ARMANDO MCCABE 100 [facility],[address] [address], [place], [address], [facility] 05/04/2025 13:50:47 OBGyn Episode No OBEpisode recorded.
--- OUTSIDE RECORDS SUMMARY | 2025-06-22 14:26 | XMS_ITS | Clinical Summary ---
Author Organization [facility] Address [address] [place] [address] Phone Care Team Providers Care Palm And Back Forger Name Role Phone Deanna Lynch Primary Care Provider [phone] Encounters Date Type Department Care Team Description 05/18/2025 1:00 PM EDT Office Visit [facility] [address] [place] [address] Sofiya Pierce MD Losty, Nikki, OT Pain in both wrists (Primary Dx) 05/11/2025 1:00 PM EDT Office Visit [facility] [address] [place] [address] Sofiya Pierce MD Losty, Nikki, OT Pain in both wrists (Primary Dx) 04/27/2025 1:00 PM EDT Office Visit [facility] [address] [place] [address] Sofiya Pierce MD Losty, Nikki, OT Pain in both wrists (Primary Dx) 03/25/2025 Transcribe Orders [address] [address] Sofiya Pierce MD Encounter for rehabilitation (Primary Dx) from Last 3 Months Social History Tobacco Use Types Packs/Day Years [...] on file Sexual Orientation Not on file Plan of Treatment Health Maintenance Due Date Last Done Comments Adult Td,Tdap Booster 1960 LIPID PANEL 1960 DEPRESSION SCREENING 1972 SMOKING Hx and SMOKELESS TOB ACCO SCREENING 1973 HEPATITIS C SCREENING 1978 HIV ONE-TIME SCREENING (18-6 5 YEARS) 1978 PAP SMEAR 1981 MAMMOGRAM 2000 COLOGUARD 2005 COLONOSCOPY 2005 COLORECTAL CANCER SCREENING 2005 FIT TEST 2005 FOBT 2005 SIGMOIDOSCOPY 2005 VIRTUAL COLONOSCOPY 2005 PNEUMOCOCCAL VACCINES (50+ y ears) (1 of 1 - PCV) 2010 ZOSTER VACCINES (1 of 2) 2010 INFLUENZA VACCINE (#1) 2025 COVID-19 VACCINE (1 - 2024-2 6 season) 2025 RSV VACCINE (1 - 1-dose 75+ series) 11/28/2035 HEPATITIS A VACCINES Aged Out No long er eligible based on patient's age to complete this topic HIB VACCINES Aged Out No longer eligi ble based on patient's age to complete this topic MENINGOCOCCAL VACCINES (ACWY) Aged Out No longer eligible based on patient's age to complete this topic MENINGOCOCCAL VACCINES (B) Aged Out N o longer eligible based on patient's age to complete this topic Medical Devices Not on file Procedures Procedure Name Priority Date/Time Associated Diagnosis Comments AMB REFERRAL TO [facility] OCCUPATIONAL THERAPY Routine 04/28/2025 2:59 PM EDT Encounter for rehabilitation from Last 3 Months Results * Ambulatory referral to [facility] Occupational Therapy (04/28/2025 2:59 PM EDT) Other Sofiya Pierce MD AMB [facility] REFERRALS Final Result from Last 3 Months Insurance O POS [place] [address] [place], [place] [address] [address] [place] [address] [place] [address] [place] [address] HMO POS Care Teams Palm And Back Forger Relationship Specialty Start Date End Date Deanna Lynch PA [address] [place] [address] PCP - General Physician Cloth Washer 03/25/25 Additional Source Comments The information contained in this document represents components of the legal health record. It is not the complete legal health record.[facility]
== END 2025-06-22 11:21 | disposition home or self-care (01) ==
LOC: HO.LAB 11:20
PROVIDERS: PCP Physician Assistant; Visit Provider Psychiatry & Neurology Neurology
DX: Z13.89 Encounter for screening for other disorder (principal)

== ENCOUNTER 2025-07-28 10:29 | Day surgery (SDC) | payer BC, SELFPAY ==
--- OUTSIDE RECORDS SUMMARY | 2025-06-25 09:28 | XMS_ITS | Continuity of Care Document ---
Author Organization [place] - [facility], [facility] Address [address] [place] [address] Care Team Providers Care Insurance Claims Adjuster Name Role Phone KATHERINE WELSH Primary Care Provider Assessment Encounter Date Assessment Date Assessment LastModified [...] where it does not, to assist the international logistics coordinator in optimizing its settings. The patient has [...] be further evaluated during her audiology appointment. [email or web address] Not available 04/13/2025 11:22:17 Plan of Treatment [...] By Organization Details Last Modified Time 04/13/2025 [id number] Discontinue triamterene/hydro chlorothiazide and potassium supplementation. Monitor blood pressure at home or with primary care provider. Schedule an appointment with an international logistics coordinator for hearing aid evaluation and adjustment. Wear hearing aid consistently over the next few weeks and document environments where it works well and where it does not. Upload or provide copies of previous medical records, including imaging studies, via the patient portal or by dropping them off at the office. [email or web address] Not available 04/13/2025 11:20:47 Please note: Parts of this encounter note have been generated by AI based on audio conversation. Patient consent was required prior to utilizing this technology. Content review was required prior to finalizing the note. [email or web address] Not available 04/13/2025 11:20:47 Reason for Referral [...] Sensorineur al hearing loss of bilateral ears 139091051 Active 2024 LUIS ARMANDO GRAVES [address] [address], [place], [address], [facility] - [facility] 10:35:59 Bilateral exostosis of external ear canals 3228067582331 108 Active 2024 JANEL BABIN MD [address] [address], [place], [address], [facility] - [facility] [place] 11:09:25 Meniere's disease of left inner ear 8023318081617 107 Active 2024 JANEL BABIN MD 100 [facility] 100, [place], [address], [facility] 11:22:24 Problem Notes None recorded. Procedures Surgical History Date Name Laterality Status Provider Name and Address Organization Details Recorded Time Comp Audio with Tymps & Reflexes - 29941 & 57469 completed LUIS ARMANDO GRAVES 100 [facility] 100, [place], [address], [facility] 04/13/2025 10:35:54 Imaging Results None recorded. [...] Tobacco Smoking Status Never Smoker Aurelia perez [place] - [facility] 04/13/2025 10:05:32 How Many Years Have You Consumed Alcohol? 20 [email or web address] Information not available 04/13/2025 What Type Of Automotive Service Assistant Do You Use? None [email or web address] Information not available 04/13/2025 How Many Alcoholic Drinks Do You Consume Per Day On Average? 3 [email or web address] Information not available 04/13/2025 Do You Have Any Pets? Yes [email or web address] Information not available 04/13/2025 Are You Passively Exposed To Smoke? No Information not available 04/13/2025 Are There Any Smokers In Your House? No Information not available 04/13/2025 Sex: Unknown Functional Status Question Answer Note LastModified by Organization Details LastModified Time How many times per week do you consume alcohol? 1-2 times per week [email or web address] Information not available 04/13/2025 Do you use any illicit or recreational drugs? No [email or web address] Information not available 04/13/2025 Do you or have you ever used any other forms of tobacco or nicotine? No [email or web address] Information not available 04/13/2025 What is your level of alcohol consumption? Occasional [email or web address] Information not available 04/13/2025 What type of noise exposure are you exposed to? noExposureToExcessiveNoise [email or web address] Infor mation not available 04/13/2025 Mental Status None recorded. Family History Nothing Reported. Medical History Condition Response Allergies/Hayfever N Heart Problems N Anxiety Y Tonsil Infections N Emphysema N Migraines N Thyroid Problems N COPD N Depression Y Developmental Delay N Glaucoma N Nasal or Sinus Problems N Anemia N Immune System Disorder N Anesthesia Complications N Heart Attack ([place]) N Other Skin Condition N Diabetes N Rhinitis N Bleeding Disorder N Food Allergy N Hearing Loss Y Arthritis Y Hyperlipidemia Y Cancer N Stroke N Dementia N Nasal polyps N Asthma N Sleep Disorder N High Cholesterol N GERD/Reflux Y Liver Disease N Headaches N Fibromyalgia N Hypertension N Speech Delay N Kidney Disease N Gynecological HistoryNo gynecological history recorded. Obstetrics History GPAL:G 0 P 0 0 0 0 Past Encounters Encounter ID Performer Location Encounter Start Date Encounter Closed Date Diagnosis/Indication Diagnosis SNOMED-CT Code Diagnosis ICD10 Code Diagnosis IMO Codes Diagnosis Note [id number] JANEL BABIN MD [facility] on [address] [place] [address] 04/13/2025 09:52:37 04/13/2025 12:01:50 Sensorineural hearing loss of bilateral ears 892525967 H90.3 [id number] Audiologic al evaluation results: 04/13/2025 Right ear: [...] l Bilateral exostosis of external ear canals 7250403729 001866 H61.813 25676517 Meniere's disease of left inner ear 0911741587 980506 H81.02 [id number] Health Concerns Section Related Observation LastModified by Organization Detai ls LastModified Time None Recorded Concern Status LastModified by Organization Details LastModified Time None Recorded Payers Encounter Date Sequence Insurance Name Policy Number Policy Hernandez Covered Member ID Hernandez Member ID Guarantor Name 04/13/2025 1 [facility] ([facility] [id number] Shell Ashraf [id number] Shell Ashraf Notes Date Note Type [...] evaluation for her condition, including consultations at [facility] and a specialist in [facility]. She expresses interest in discontinuing her diuretic and potassium supplementation, given her stable symptoms over the past few years. JANEL BABIN MD [address] [place] [address], [place], [address], [facility] - [facility] 04/13/2025 11:22:44 OBGyn Episode No OBEpisode recorded.
--- OUTSIDE RECORDS SUMMARY | 2025-06-25 09:28 | XMS_ITS | Data Portability ---
Author Organization [place] - [facility], Allergy Address [address] [address] Care Team Providers Care Calculus Teacher Name Role Phone WELSHKATHERINE CUMMINGS Primary Care Provider Assessment Encounter Date Assessment [...] where it does not, to assist the admissions evaluator in optimizing its settings. The patient has [...] be further evaluated during her audiology appointment. [email or web address] Not available 04/13/2025 11:22:17 Plan of Treatment [...] By Organization Details Last Modified Time 04/13/2025 [id number] Discontinue triamterene/hydro chlorothiazide and potassium supplementation. Monitor blood pressure at home or with primary care provider. Schedule an appointment with an admissions evaluator for hearing aid evaluation and adjustment. Wear hearing aid consistently over the next few weeks and document environments where it works well and where it does not. Upload or provide copies of previous medical records, including imaging studies, via the patient portal or by dropping them off at the office. Not available 04/13/2025 11:20:47 Please note: Parts of this encounter note have been generated by AI based on audio conversation. Patient consent was required prior to utilizing this technology. Content review was required prior to finalizing the note. [email or web address] Not available 04/13/2025 11:20:47 Reason for Referral [...] Sensorineur al hearing loss of bilateral ears [id number] Active 2024 LUIS ARMANDO GRAVES [address] [address], [place], [address], [facility] - [facility] 10:35:59 Bilateral exostosis of external ear canals [id number] 108 Active 2024 JANEL BABIN MD [address] [address], [place], [address], [place] - [facility] 11:09:25 Meniere's disease of left inner ear [id number] 107 Active 2024 JANEL BABIN MD 100 [facility] [address], [address], [facility] [place] 11:22:24 Problem Notes None recorded. Procedures Surgical History Date Name Laterality Status Provider Name and Address Organization Details Recorded Time Comp Audio with Tymps & Reflexes - 85488 & 77742 completed LUIS ARMANDO GRAVES 100 [facility] 100, [place], [address], [facility] 04/13/2025 10:35:54 Imaging Results None recorded. [...] Tobacco Smoking Status Never Smoker Aurelia perez [facility] 04/13/2025 10:05:32 How Many Years Have You Consumed Alcohol? 20 [email or web address] Information not available 04/13/2025 What Type Of Real Estate Closing Coordinator Do You Use? None Information not available 04/13/2025 How Many Alcoholic Drinks Do You Consume Per Day On Average? 3 [email or web address] Information not available 04/13/2025 Do You Have Any Pets? Yes [email or web address] Information not available 04/13/2025 Are You Passively Exposed To Smoke? No [email or web address] Information not available 04/13/2025 Are There Any Smokers In Your House? No [email or web address] Information not available 04/13/2025 Sex: Unknown Functional Status Question Answer Note LastModified by Organization Details LastModified Time How many times per week do you consume alcohol? 1-2 times per week [email or web address] Information not available 04/13/2025 Do you use any illicit or recreational drugs? No [email or web address] Information not available 04/13/2025 Do you or have you ever used any other forms of tobacco or nicotine? No [email or web address] Information not available 04/13/2025 What is your level of alcohol consumption? Occasional [email or web address] Information not available 04/13/2025 What type of noise exposure are you exposed to? noExposureToExcessiveNoise [email or web address] Infor mation not available 04/13/2025 Mental Status None recorded. Family History Nothing Reported. Medical History Condition Response Allergies/Hayfever N Heart Problems N Anxiety Y Tonsil Infections N Emphysema N Migraines N Thyroid Problems N Depression Y COPD N Developmental Delay N Glaucoma N Nasal or Sinus Problems N Anemia N Immune System Disorder N Anesthesia Complications N Heart Attack ([place]) N Other Skin Condition N Diabetes N [...] ICD10 Code Diagnosis IMO Codes Diagnosis Note [id number] JANEL BABIN MD [facility] on [address] [place] [address] 04/13/2025 09:52:37 04/13/2025 12:01:50 Sensorineural hearing loss of bilateral ears 282936998 H90.3 [id number] Audiologic al evaluation results: 04/13/2025 Right ear: [...] l Bilateral exostosis of external ear canals [id number] 839559 H61.813 [id number] Meniere's disease of left inner ear 5015457903 940962 H81.02 [id number] [id number] LUIS ARMANDO MCCABE [address] [address] 05/04/2025 13:02:50 05/04/2025 14:32:52 Sensorineural hearing loss of bilateral ears 399222378 H90.3 [id number] Health Concerns Section Related Observation LastModified by Organization Detai ls LastModified Time None Recorded Concern Status LastModified by Organization Details LastModified Time None Recorded Advance Directives Directive None Recorded Payers Insurance Date Sequence Insurance Name Policy Number Policy Hernandez Covered Member ID Hernandez Member ID Guarantor Name 05/04/2025 1 [facility]: [facility] [id number] Shell Ashraf [id number] Shell Ashraf Notes Date Note Type [...] evaluation for her condition, including consultations at [facility] and a specialist in [facility]. She expresses interest in discontinuing her diuretic and potassium supplementation, given her stable symptoms over the past few years. JANEL BABIN MD 100 [facility],[address], [address], [facility] 04/13/2025 11:22:44 05/04/2025 text/html Here today to establish care. She recently moved from [place].She feels she is doing well with the hearing aid but she is in choir and when she sings she has to take it out. Conneted to [facility] downloaded original settings and then saved in [...] working for her. LUIS ARMANDO MCCABE 100 [facility],[address] [address], [place], [address], [facility] 05/04/2025 13:50:47 OBGyn Episode No OBEpisode recorded.
--- OUTSIDE RECORDS SUMMARY | 2025-06-25 09:28 | XMS_ITS | Continuity of Care Document ---
Author Organization [place] - [facility], [facility] No Address [address] [place] [address] Care Team Providers Care Wheel Adjuster Name Role Phone KATHERINE WELSH Primary Care Provider Assessment No assessment recorded. Plan of Treatment Reminders Order Date Submit Date Provider Last Modified By Organization Details Last Modified Time Details Appointments None record ed. Lab None record ed. Referral None record ed. Procedures None record ed. Surgeries None record ed. Imaging None record ed. Medication Orders None record ed. Patient TargetsNo targets recorded. Patient InstructionsNo instructions recorded. Reason for Referral None Reported. Results Created [...] Sensorineur al hearing loss of bilateral ears [id number] Active 2024 LUIS ARMANDO GRAVES [address] [address], [place], [address], [facility] - [facility] 5 10:35:59 Bilateral exostosis of external ear canals [id number] 108 Active 2024 JANEL BABIN MD [address] [address], [place], [address], [facility] - [facility] 5 11:09:25 Meniere's disease of left inner ear 8200008897336 107 Active 2024 JANEL BABIN MD 100 [facility] [address], [place], [address], [facility] 11:22:24 Problem Notes None recorded. Procedures Surgical History Date Name Laterality Status Provider Name and Address Organization Details Recorded Time Comp Audio with Tymps & Reflexes - 79912 & 10206 completed LUIS ARMANDO GRAVES 100 [facility] 100, [place], [address], [facility] 04/13/2025 10:35:54 Imaging Results None recorded. Procedure [...] Tobacco Smoking Status Never Smoker Aurelia perez [place] - [facility] 04/13/2025 10:05:32 How Many Years Have You Consumed Alcohol? 20 [email or web address] Information not available 04/13/2025 What Type Of Senior Software Development Engineer Do You Use? None [email or web address] Information not available 04/13/2025 How Many Alcoholic Drinks Do You Consume Per Day On Average? 3 [email or web address] Information not available 04/13/2025 Do You Have Any Pets? Yes [email or web address] Information not available 04/13/2025 Are You Passively Exposed To Smoke? No Information not available 04/13/2025 Are There Any Smokers In Your House? No [email or web address] Information not available 04/13/2025 Sex: Unknown Functional Status Question Answer Note LastModified by Organization Details LastModified Time How many times per week do you consume alcohol? 1-2 times per week [email or web address] Information not available 04/13/2025 Do you use any illicit or recreational drugs? No [email or web address] Information not available 04/13/2025 Do you or have you ever used any other forms of tobacco or nicotine? No [email or web address] Information not available 04/13/2025 What is your level of alcohol consumption? Occasional [email or web address] Information not available 04/13/2025 What type of noise exposure are you exposed to? noExposureToExcessiveNoise [email or web address] Infor mation not available 04/13/2025 Mental Status None recorded. Family History Nothing Reported. Medical History Condition Response Allergies/Hayfever N Heart Problems N Anxiety Y Tonsil Infections N Emphysema N Migraines N Thyroid Problems N Glaucoma N Depression Y COPD N Developmental Delay N Nasal or Sinus Problems N Anemia N Immune System Disorder N Anesthesia Complications N Heart Attack ([place]) N Other Skin Condition N Diabetes N [...] ICD10 Code Diagnosis IMO Codes Diagnosis Note [id number] JANEL BABIN MD [facility] [address] [address] 04/13/2025 09:52:37 04/13/2025 12:01:50 Sensorineural hearing loss of bilateral ears [id number] H90.3 [id number] Audiologic al evaluation results: 04/13/2025 Right ear: [...] l Bilateral exostosis of external ear canals 9969806253 308551 H61.813 75170957 Meniere's disease of left inner ear 1421277533 919653 H81.02 [id number] [id number] LUIS ARMANDO MCCABE [place] - [facility] [address] [place] [address] 05/04/2025 13:02:50 05/04/2025 14:32:52 Sensorineural hearing loss of bilateral ears 703439803 H90.3 [id number] Health Concerns Section Related Observation LastModified by Organization Detai ls LastModified Time None Recorded Concern Status LastModified by Organization Details LastModified Time None Recorded Payers Encounter Date Sequence Insurance Name Policy Number Policy Hernandez Covered Member ID Hernandez Member ID Guarantor Name 05/04/2025 1 [facility]: [facility] [id number] Shell Ashraf [id number] Shell Ashraf Notes Date Note Type Note Provider Name and Address Organization Details Recorded Time 05/04/2025 text/html Here today to establish care. She recently moved from [place].She feels she is doing well with the hearing aid but she is in choir and when she sings she has to take it out. Conneted to Bruce downloaded original settings and then saved in [...] changes I made aren't working for her. JOSUE GAUTAM, [facility] [place] 100 [facility],[address] [address], [place], [address], [facility] - [facility] 05/04/2025 13:50:47 OBGyn Episode No OBEpisode recorded.
--- NOTE | 2025-07-24 12:54 | HO.ANESPROP2 ---
Documented by User: Columba Lo NP 07/24/25 12:54 HPI - Anesthesia Eval Consult details Narrative: 64yo F for Upper Endoscopy and Colonoscopy PMFSH Active Problems Active Problems: All Active Problems Drug allergy (Acute) Colon cancer screening (Acute) Acid reflux (Acute) Family history of dementia (Acute) Forgetfulness (Acute) History of carpal tunnel release of both wrists (Acute) Hoarseness (Acute) Meniere disease (Acute) Bilateral wrist pain (Acute) GERD with esophagitis (Acute) Globus sensation (Acute) Past Medical History Medical History Anxiety Colon cancer screening Acid reflux Family History Family History Father Depression Alcohol abuse Mother Alcohol abuse Asthma HTN (hypertension) Thyroid disorder Maternal Grandmother Cardiovascular disease Maternal Grandfather Esophageal cancer Other FH: mental illness Substance use Surgical History Surgical History Hx of cervical biopsy Hx of colonoscopy History of carpal tunnel release of both wrists Social History Social History Housing: House Patient Tobacco Use Status: Never used Tobacco e-Cigarette/Vaping Use: Never Used Second Hand Smoke Exposure: No Use of substances other than those prescribed or required for medical reasons: Yes Substance Use Type Other:: edible--[place] few wks ago Substance Use Frequency: Occasionally Are you DNR?: No Advance Directives: No Advance Directives Information Provided: Yes service: No 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al status: retired 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 Cognitive needs: No Hearing needs: Yes (hearing problem in right ear) Vision needs: Yes (glasses) Meds Allergies Allergy/AdvReac Type Severity Reaction Status Date / Time Penicillins Allergy Unknown Rash Verified 07/28/25 11:05 Home Medications ?Medication ?Instructions ?Recorded ?Confirmed ?Last Taken ?Type cholecalciferol (vitamin D3) 25 25 mcg PO DAILY 01/22/25 07/28/25 Unknown History mcg (1,000 unit) capsule cyanocobalamin (vitamin B-12) 1,000 mcg PO DAILY 01/22/25 07/28/25 Unknown History 1,000 mcg capsule Assessment and Plan Assessment Anesthesia Assessment: Chart Reviewed Documented by User: Rashad Bradley MD 07/28/25 12:10 PMFSH Past Medical History Medical History Anxiety Colon cancer screening Acid reflux Family History Family History Father Depression Alcohol abuse Mother Alcohol abuse Asthma HTN (hypertension) Thyroid disorder Maternal Grandmother Cardiovascular disease Maternal Grandfather Esophageal cancer Other FH: mental illness Substance use Family history of problems with anesthesia: No Surgical History Surgical History Hx of cervical biopsy Hx of colonoscopy History of carpal tunnel release of both wrists History of Problems with Anesthesia: No Social History Social History Housing: House Patient Tobacco Use Status: Never used Tobacco e-Cigarette/Vaping Use: Never Used Second Hand Smoke Exposure: No Use of substances other than those prescribed or required for medical reasons: Yes Substance Use Type Other:: edible--[place] few wks ago Substance Use Frequency: Occasionally Are you DNR?: No Advance Directives: No Advance Directives Information Provided: Yes service: No 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al status: retired 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 Cognitive needs: No Hearing needs: Yes (hearing problem in right ear) Vision needs: Yes (glasses) Meds Allergies Allergy/AdvReac Type Severity Reaction Status Date / Time Penicillins Allergy Unknown Rash Verified 07/28/25 11:05 Home Medications ?Medication ?Instructions ?Recorded ?Confirmed ?Last Taken ?Type cholecalciferol (vitamin D3) 25 25 mcg PO DAILY 01/22/25 07/28/25 Unknown History mcg (1,000 unit) capsule cyanocobalamin (vitamin B-12) 1,000 mcg PO DAILY 01/22/25 07/28/25 Unknown History 1,000 mcg capsule Exam Exam Date and Time: 07/28/2025 Airway Mallampati Class: II TM Dist: >3cm Heart: rrr Lungs: ctab vesicular Assessment and Plan Assessment Anesthesia Assessment: Anesthesia Plan Discussed Final Anesthetic Review Family History of Problems with Anesthesia: No History of Problems with Anesthesia: No NPO: Yes ASA Class: II Final Preanesthetic Review: No Changes in Pt Med Stat, Meds/Allgs Chart Reviewed, Consent Obtained/Reviewed and Anes Risks/Benef Reviewed Patient Risk: Low Procedure Risk: Low Anesthetic Plan Anesthetic Plan: MAC: Disposition: Standard PACU
[2025-07-28 11:07] VITALS: BMI 23.7
[2025-07-28 11:09] VITALS: BP 125/71; PULSE 81; RESP 15; TEMP 36.8; O2SAT 100
--- NOTE | 2025-07-28 11:17 | MHC.SHP ---
Pre-Procedural Eval Section A - 24 Hr Update-Section A only Date of Service: 07/28/25 Section B - Complete if H&P > 30 days Chief Complaint: screening,gerd, Details of Present Illness: Colon cancer screening Acid reflux Surgical History (Updated 05/27/25 @ 12:52 by Alison Feliz) Hx of colonoscopy History of carpal tunnel release of both wrists Present Medications: see Short Stay Collaborative assessment Allergies: Allergies Allergy/AdvReac Type Severity Reaction Status Date / Time Penicillins Allergy Unknown Rash Verified 07/28/25 11:05 Review of Systems Review of Systems Comment: Ten point ROS negative Exam Exam Comment: Gen appear: No acute distress HEENT: no icterus Chest: No overt resp distress Abd: soft, nontender, nondistended Psych: Stable affect, answering questions appropriately Neuro: A/Ox3 noted to move all extremities spontaneously Ext: no peripheral edema Plan Diagnosis/Plan: Unchanged I have reviewed the history and physical and performed a pertinent physical examination on my patient. No changes have occurred unless specified. Time Spent With Patient Time: Total time managing care of this patient today ____ minutes.
[2025-07-28] MEDS: Lactated Ringers 1,000 ML 100 ML IVCONT (11:22)
[2025-07-28 13:01] VITALS: BP 110/53; PULSE 76; RESP 10; TEMP 36.6; O2SAT 97
--- NOTE | 2025-07-28 13:04 | P.OPN-COLO_ITS ---
Colonoscopy Operative Note Operative Note Date of Service: 07/28/25 Narrative: Procedure: Upper endoscopy and colonoscopy Indication: GERD, screening Endoscopist: Odalys Castellanos MD Anesthesia Provider: Dr Kevin Luciano Anesthesia type: MAC Instrument: GIF-H190 and [id number]-[id number] Colonoscopy Procedure:? The procedure, indications, preparation and potential complications were reviewed with the patient, who indicated understanding and gave written informed consent to proceed. The patient was turned to left lateral decubitus position for the colonoscopy. A digital rectal exam was performed which was abnormal for external hemorrhoids.? A distal attachment cap was affixed to the tip of the scope and the colonoscope was then inserted through the anus and advanced through the colon and advanced to the cecum at 75 cm and terminal ileum.? Appendiceal orifice and ileocecal valve were identified. Mucosa was carefully examined under high definition white light as the instrument was slowly withdrawn in a retrograde panoramic fashion. Retroflexion was performed in rectum. The procedure was not difficult. The quality of the prep was BBPS: 2+2+3 = adequate Withdrawal time 10 minutes Limitations: No limitations Findings: Mucosa: Normal colon and terminal ileum mucosa. Protruding lesions: * Medium internal hemorrhoids without stigmata of recent bleeding. Excavated lesions: * [id number] diverticulosis of left colon. EGD Procedure:?? The patient was then turned for the upper endoscopy. The endoscope was introduced through the bite block, and advanced to the 2nd part of the duodenum. The mucosa was carefully examined on slow withdrawal of the endoscope. The patient tolerated the procedure well. There were no immediate complications.? EGD Findings:? * Esophagus:? Normal esophageal mucosa was noted. The Z-line was at 35 cm with a medium hiatal hernia with the diaphragmatic hernia with pinch at 40 cm. Cold forceps biopsies were taken from middle and lower to rule out eosinophilic esophagitis. * Stomach:? Normal gastric mucosa. Retroflexion was performed in the cardia. * Duodenum:? Normal duodenal mucosa. Impression: 1. Normal esophagus (biopsy) 2. Hiatal hernia 3. Normal stomach 4. Normal duodenum 5. Normal colon and terminal ileum mucosa 6. Diverticulosis 7. Internal and external hemorrhoids Recommendations:?? * Follow-up path results * Avoid NSAIDs * Consider barium swallow for further evaluation of hiatal hernia * Repeat colonoscopy for CRC screening in 10 years.
[2025-07-28 13:16] VITALS: BP 120/52; PULSE 78; RESP 18; TEMP 36.8; O2SAT 99
== END 2025-07-28 14:17 | disposition home or self-care (01) ==
PROVIDERS: PCP Physician Assistant; Visit Provider Internal Medicine
PROC: (CPT 45378; principal; 2025-07-28 12:20)
DX: Z12.11 Encounter for screening for malignant neoplasm of colon (principal); K21.9 Gastro-esophageal reflux disease without esophagitis; K64.8 Other hemorrhoids; K57.30 Diverticulosis of large intestine without perforation or abscess without bleeding; K44.9 Diaphragmatic hernia without obstruction or gangrene
CPT/HCPCS: 45378; 43239; 88305; J2003; J2405; J2704

== ENCOUNTER → 2025-07-28 10:29 | Outpatient (BNV) | payer BC, SELFPAY | PROVIDERS: PCP Physician Assistant; Visit Provider Internal Medicine | DX: Z12.11 Encounter for screening for malignant neoplasm of colon (principal); K57.90 Diverticulosis of intestine, part unspecified, without perforation or abscess without bleeding; K64.8 Other hemorrhoids; K21.9 Gastro-esophageal reflux disease without esophagitis | CPT/HCPCS: 43239; 45378 ==

== ENCOUNTER 2025-08-17 13:19 | Outpatient (REF) | payer BC, SELFPAY ==
--- NOTE | ~2025-08-17 | MR_ITS ---
EXAMINATION: MR BRAIN WITHOUT CONTRAST CLINICAL INFORMATION: Headache, tremor, memory loss.? Parkinsonism. 64-year-old female. COMPARISON: None available. TECHNIQUE: MRI of the brain was obtained using routine sequences without contrast. Examination performed on a Siemens 1.5 [place] high-field unit. Standard sequences utilized, including a coronal and sagittal T2 FLAIR. FINDINGS: There is no diffusion restriction. There is no intracranial hemorrhage, acute infarction, mass effect, or edema. Ventricles, sulci, and cisterns are normal in size and configuration for patient age. No unusual patterns of atrophy present. Mesial temporal lobes have normal volume. Temporal horns are nondilated and symmetric. No shift of midline. No abnormal hemosiderin deposition is identified. There are a few tiny punctate foci of white matter T2 hyperintensity in the hemispheric deep white matter, entirely nonspecific but statistically representing small vessel ischemic changes. Midline structures appear normally formed. The pituitary gland appears normal. Posterior fossa structures demonstrate a suspected small right CP angle arachnoid cyst (series 12, image 6) measuring approximately 10 x 11 x 10 mm. Posterior fossa structures otherwise normal. Cerebellar tonsils are appropriately located. Major flow voids are preserved within the skull base. Mildly high riding left jugular bulb. The globes and orbital contents demonstrate no abnormalities. Paranasal sinuses are clear bilaterally. The mastoids and tympanic cavities are normally aerated. Extracranial soft tissues demonstrate no abnormalities. No suspicious bone marrow changes are evident. Atlantoaxial joint demonstrates mild degenerative changes. More significant degenerative change noted at C3-4 and C4-5. MR/MR head/brain wo con IMPRESSION: 1. No evidence of intracranial hemorrhage, acute infarction, mass effect, or edema. No abnormal patterns of parenchymal atrophy. 2. Minimal white matter changes of small vessel ischemia. 3. Tiny right CP angle arachnoid cyst suspected measuring 10 x 11 x 10 mm. Electronically signed by: Rojelio Montiel MD 08/17/2025 03:25 PM [facility]
--- OUTSIDE RECORDS SUMMARY | 2025-08-17 15:23 | XMS_ITS | Clinical Summary ---
Author Organization [facility] Address [address] [place] [address] [place] [phone] Phone Care Team Providers Care Binding Bench Worker Name Role Phone Deanna Lynch Primary Care Provider [phone]- [phone] Encounters Date Type Department Care Team Description 05/18/2025 1:00 PM EDT Office Visit [facility] [address] [place] [phone] Sofiya Pierce MD Losty, Nikki, OT Pain in both wrists (Primary Dx) from Last 3 Months Social [...] ears) (1 of 1 - PCV) 2010 INFLUENZA VACCINE (#1) 2025 COVID-19 VACCINE (1 - 2024-2 6 season) 2025 ZOSTER VACCINES (2 of 2) 06/26/2025 05/01/2025 RSV VACCINE (1 - 1-dose 75+ series) [...] Procedure Name Priority Date/Time Associated Diagnosis Comments VITAMIN B12 Routine 06/24/2025 12:31 PM EST Memory loss CERULOPLASMIN Routine 06/24/2025 12:31 PM EST Memory loss IGA SUBCLASSES Routine 06/24/2025 12:31 PM EST Memory loss SYPHILIS ANTIBODY SCREEN ASSAY Routine 06/24/2025 12:31 PM EST Memory loss FOLATE Routine 06/24/2025 12:31 PM EST Memory loss from Last 3 Months Results * IgA Subclasses (06/24/2025 12:31 PM EST) IgA 142 85 - 499 mg/dL 06/30/2025 10:52 AM EST [facility] IgA1 111 76 - 328 mg/dL 06/30/2025 10:52 AM EST [facility] IgA2 17.3 6.9 - 114.3 mg/dL 06/30/2025 10:52 AM EST [facility] Blood (Blood) Venipuncture / Unknown 06/24/2025 12:31 PM EST 06/24/2025 12:39 PM EST Mehrdad Siegel MD LAB BLOOD BKR ORDERABLES Fin al Result RAMAN (BEAKER) [facility] [address] [place], [place] [address] [phone] * Ceruloplasmin (06/24/2025 12:31 PM EST) Ceruloplasmin 33 20 - 60 mg/dl 06/25/2025 10:45 AM EST [facility] Blood (Blood) Venipuncture / Unknown 06/24/2025 12:31 PM EST 06/24/2025 12:38 PM EST Mehrdad Siegel MD LAB BLOOD BKR ORDERABLES Fin al Result [address] [address] * Syphilis Antibody Screen (06/24/2025 12:31 PM EST) RPR Test Non-Reactiv e Non-Reacti ve 06/25/2025 2:15 PM EST [facility] Blood (Blood) Venipuncture / Unknown 06/24/2025 12:31 PM EST 06/24/2025 12:39 PM EST Mehrdad Siegel MD LAB BLOOD BKR ORDERABLES Fin al Result [facility] [address] [place] [address] * Folate (06/24/2025 12:31 PM EST) Folic Acid 10.2 >4.7 ng/mL 06/24/2025 2:07 PM EST [facility] Blood (Blood) Venipuncture / Unknown 06/24/2025 12:31 PM EST 06/24/2025 12:39 PM EST Mehrdad Siegel MD LAB BLOOD BKR ORDERABLES Fin al Result Performing Organization Address [facility] Co de Phone Number [address] [address] * (ABNORMAL) Vitamin B12 (06/24/2025 12:31 PM EST) [facility] Vitamin B12 1,691(H) 232 - 1,245 pg/mL 06/24/2025 2:06 PM EST [facility] Blood (Blood) Venipuncture / Unknown 06/24/2025 12:31 PM EST 06/24/2025 12:38 PM EST us Mehrdad Siegel MD LAB BLOOD BKR ORDERABLES Fin al Result Performing Organization Address [facility] Co de Phone Number [address] [phone] from Last 3 Months [place] [address] [place] [address] [facility] Care Teams Binding Bench Worker Relationship Specialty Start Date End Date Deanna Lynch PA [address] [place] [phone] PCP - General Physician Market Research Coordinator 03/25/25 Additional Source Comments The information contained in this document represents components of the legal health record. It is not the complete legal health record.[facility]
--- OUTSIDE RECORDS SUMMARY | 2025-08-17 15:23 | XMS_ITS | Clinical Summary ---
Author Organization [facility] Address [address] [place] [address] Phone Care Team Providers Care Non Food Receiving Clerk Name Role Phone Unavailable Primary Care Provider [...] on file Sexual Orientation Not on file Last Filed Vital Signs Vital Sign Reading [...] FIT-DNA (Cologuard) 12/10/2024 12/10/2021, 12/10/2021 COVID-19 Vaccine ( - 2024-2 6 season) 2025 Influenza Vaccine (#1) 2025 RSV [...]
== END 2025-08-17 13:20 | disposition home or self-care (01) ==
LOC: HO.MRI 13:19
PROVIDERS: PCP Physician Assistant; Visit Provider Internal Medicine
DX: G43.919 Migraine, unspecified, intractable, without status migrainosus (principal); R41.3 Other amnesia; R25.1 Tremor, unspecified
CPT/HCPCS: 70551

== ENCOUNTER → 2025-08-17 13:25 | Outpatient (BNV) | payer BC, SELFPAY | PROVIDERS: PCP Physician Assistant; Visit Provider Radiology Diagnostic Radiology | DX: R51.9 Headache, unspecified (principal); R25.1 Tremor, unspecified | CPT/HCPCS: 70551 ==